=== PATIENT | male | born 2000 | race Hispanic/Latino ===

== ENCOUNTER 2021-08-07 15:47 | Emergency (ER) | payer SELFPAY ==
[2021-08-07] MEDS ORDERED: SILVER SULFADIAZINE 1% 25 GM TOP ONE (16:50)
[2021-08-07] MEDS ORDERED: TETANUS & DIPHTHERIA TOX,ADULT 0.5 ML VIAL ONE (16:50)
[2021-08-07] MEDS ORDERED: HYDROCODONE/APAP 5/325 MG TAB ONE (16:50)
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
[2021-08-07 17:48] VITALS: BP 121/81; TEMP 97.1; O2SAT 95
== END 2021-08-07 17:26 | disposition home or self-care (01) ==
LOC: ER 15:47
DX: T23.102A Burn of first degree of left hand, unspecified site, initial encounter (principal); X19.XXXA Contact with other heat and hot substances, initial encounter; Z23 Encounter for immunization
CPT/HCPCS: 90471; 90714; 99284

== ENCOUNTER 2022-05-22 07:44 | Emergency (ER) | payer OTHER ==
--- NOTE | 2022-05-22 08:05 | EDPHYS ---
Physician Documentation [facility] Name: Jeremiah Joy Age: 22 yrs Sex: Male : 2000 Arrival Date: 05/22/2022 Time: 07:46 Bed 6 Private MD: ED Physician Donald Abdi HPI: 05/22 08:32 This 22 yrs old Male presents to ER via Ambulatory with complaints of Neck kb Pain, <24hrs Old, Head Injury Without LOC-Adult, Nausea, Dizziness. 08:32 The patient or guardian reports pain. The complaints affect the forehead. Context of kb injury: The problem was sustained at work, resulted from hitting head with heel of palms. Onset: The symptoms/episode began/occurred yesterday. Associated signs and symptoms: Loss of consciousness: This patient did not experience any loss of consciousness. Pertinent positives: headache, nausea. Severity of symptoms: At their worst the symptoms were mild, in the emergency department the symptoms have resolved. The patient has not experienced similar symptoms in the past. The patient has not recently seen a physician. Pt reports he got frustrated at work around 1400 yesterday and hit his head with the heels of his palms. States he has had intermittent headache, dizziness and nausea since then. Denies loc. Reports he did some reading on [employer] and got worried about it so he wanted to get checked out. . Historical: - Allergies: 08:03 No Known Allergies; kc6 - Home Meds: 08:03 None [Active]; kc6 - PMHx: 08:03 None; kc6 - PSHx: 08:03 None; kc6 - Immunization history:: Client reports receiving the 2nd dose of the Covid vaccine. - Social history:: Smoking status: Patient denies any tobacco usage or history of. ROS: 08:32 Constitutional: Negative for fever, chills, and weight loss. kb 08:32 Abdomen/GI: Positive for nausea. 08:32 Neuro: Positive for dizziness, headache. 08:32 All other systems are negative. Exam: 08:32 Constitutional: This is a well developed, well nourished patient who is awake, alert, kb and in no acute distress. Head/Face: Normocephalic, atraumatic. ENT: Moist Mucous membranes Cardiovascular: Regular rate and rhythm with a normal S1 and S2. No gallops, murmurs, or rubs. No pulse deficits. Respiratory: Respirations even and unlabored. No increased work of breathing. Talking in full sentences Abdomen/GI: Soft, non-tender. No distention Skin: Warm, dry with normal turgor. Normal color. MS/ Extremity: Pulses equal, no cyanosis. Neurovascular intact. Full, normal range of motion. Neuro: Awake and alert, GCS 15, oriented to person, place, time, and situation. Moves all extremities. Normal gait. Psych: Awake, alert, with orientation to person, place and time. Behavior, mood, and affect are within normal limits. Vital Signs: 08:01 BP 132 / 80; Pulse 83; Resp 18 S; Temp 97.7(TE); Pulse Ox 96% on R/A; Weight 90.72 kg kc6 (R); Height 5 ft. 7 in. (170.18 cm) (R); Pain 1/10; 08:01 Body Mass Index 31.32 (90.72 kg, 170.18 cm) kc6 Harrold Coma Score: 08:30 Eye Response: spontaneous(4). Verbal Response: oriented(5). Motor Response: obeys kb commands(6). Total: 15. 08:32 Eye Response: spontaneous(4). Verbal Response: oriented(5). Motor Response: obeys kb commands(6). Total: 15. MDM: 07:56 Patient medically screened. kb 08:30 Differential diagnosis: Intracranial bleed- Concussion without LOC. headache. Data kb reviewed: vital signs, nurses notes. Test considered but Not performed: Other Details CT scan considered, but incident occurred at 1400 yesterday with no LOC and normal neuro exam. . Counseling: I had a detailed discussion with the patient and/or guardian regarding: the historical points, exam findings, and any diagnostic results supporting the discharge/admit diagnosis, the need for outpatient follow up, a family practitioner, to return to the emergency department if symptoms worsen or persist or if there are any questions or concerns that arise at home. Administered Medications: 08:15 Drug: Ondansetron 4 mg Route: PO; 6 08:30 Follow up: Response: No adverse reaction; Nausea is decreased [facility] 08:15 Drug: Tylenol 1000 mg Route: PO; kc6 08:30 Follow up: Response: No adverse reaction; Pain is decreased kc6 Disposition Summary: 05/22/22 08:04 Discharge Ordered Location: Home kb Condition: Stable kb Diagnosis - Headache kb Followup: kb - With: Emergency Department - When: As needed - Reason: Worsening of condition Followup: kb - With: Private Physician - When: 2 - 3 days - Reason: Recheck today's complaints, Continuance of care, Re-evaluation by your physician Discharge Instructions: - Discharge Summary Sheet kb - Head Injury, Adult, [id number] kb Forms: - Medication Reconciliation Form kb - Thank You Letter kb - Antibiotic Education kb - Prescription Opioid Use kb Signatures: Peri Ceja, APPLE PICKER-C PHUONG-Areli Howard, RN RN kc6
--- NOTE | 2022-05-22 08:05 | ER ---
Nurse's Notes [facility] Name: Jeremiah Joy Age: 22 yrs Sex: Male : 2000 Arrival Date: 05/22/2022 Time: 07:46 Bed 6 Private MD: Diagnosis: Headache Presentation: 05/22 08:01 Chief complaint: Patient states: he was at work yesterday when he got frustrated and kc6 hit his head with the balls of this palms. denies LOC. Coronavirus screen: Vaccine status: Patient reports receiving the 2nd dose of the covid vaccine. At this time, the client does not indicate any symptoms associated with coronavirus-19. Ebola Screen: No symptoms or risks identified at this time. Initial Sepsis Screen: Does the patient meet any 2 criteria? No. Patient's initial sepsis screen is negative. Does the patient have a suspected source of infection? No. Patient's initial sepsis screen is negative. Risk Assessment: Do you want to hurt yourself or someone else? Patient reports no desire to harm self or others. Onset of symptoms was May 21, 2022. 08:01 Method Of Arrival: Ambulatory 6 08:01 Acuity: CARMEN 3 kc6 Triage Assessment: 08:03 General: Appears in no apparent distress. comfortable, Behavior is calm, cooperative, kc6 appropriate for age. Pain: Denies pain. EENT: No signs and/or symptoms were reported regarding the EENT system. 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 Gait is steady, Speech is normal, Facial symmetry appears normal, Pupils are PERRLA, Intact. Cardiovascular: Heart tones S1 S2 present Capillary refill < 3 seconds. Respiratory: Airway is patent Trachea midline Respiratory effort is even, unlabored, Respiratory pattern is regular, symmetrical, Breath sounds are clear bilaterally. GI: No signs and/or symptoms were reported involving the gastrointestinal system. : No signs and/or symptoms were reported regarding the genitourinary system. Derm: No signs and/or symptoms reported regarding the dermatologic system. Skin is intact, Skin is pink, warm \T\ dry. Musculoskeletal: No signs and/or symptoms reported regarding the musculoskeletal system. Circulation, motion, and sensation intact. Capillary refill < 3 seconds, Range of motion: intact in all extremities. Historical: - Allergies: 08:03 No Known Allergies; kc6 - Home Meds: 08:03 None [Active]; kc6 - PMHx: 08:03 None; kc6 - PSHx: 08:03 None; kc6 - Immunization history:: Client reports receiving the 2nd dose of the Covid vaccine. - Social history:: Smoking status: Patient denies any tobacco usage or history of. Screenin:05 [facility] ED Fall Risk Assessment (Adult) History of falling in the last 3 months, kc6 including since admission No falls in past 3 months (0 pts) Confusion or Disorientation No (0 pts) Intoxicated or Sedated No (0 pts) Impaired Gait No (0 pts) Mobility Assist Device Used No (0 pt) Altered Elimination No (0 pt) Score/Fall Risk Level 0 - 2 = Low Risk Oriented to surroundings, Maintained a safe environment, Educated pt \T\ family on fall prevention, incl call for assistance when getting out of bed, Assessed \T\ reinforced patient's understanding of fall precautions, Hourly rounding (assess needs \T\ fall precautionary measures) done. Abuse screen: Denies threats or abuse. Denies injuries from another. Nutritional screening: No deficits noted. Tuberculosis screening: No symptoms or risk factors identified. Assessment: 08:04 Reassessment: please see triage assessment. [facility] Vital Signs: 08:01 BP 132 / 80; Pulse 83; Resp 18 S; Temp 97.7(TE); Pulse Ox 96% on R/A; Weight 90.72 kg kc (R); Height 5 ft. 7 in. (170.18 cm) (R); Pain 1/10; 08:01 Body Mass Index 31.32 (90.72 kg, 170.18 cm) [facility] [place] Coma Score: 08:30 Eye Response: spontaneous(4). Verbal Response: oriented(5). Motor Response: obeys kb commands(6). Total: 15. 08:32 Eye Response: spontaneous(4). Verbal Response: oriented(5). Motor Response: obeys kb commands(6). Total: 15. ED Course: 07:46 Patient arrived in ED. as 07:53 Peri Ceja FNP-C is [facility]. kb 07:53 Donald Abdi MD is Attending Physician. kb 08:00 Areli Rose, RN is Primary Nurse. kc6 08:03 Triage completed. kc6 08:05 Arm band placed on. kc6 08:05 Patient has correct armband on for positive identification. Bed in low position. Call kc6 light in reach. Side rails up X 1. 08:30 No provider procedures requiring assistance completed. Patient did not have IV access kc6 during this emergency room visit. Administered Medications: 08:15 Drug: Ondansetron 4 mg Route: PO; kc6 08:30 Follow up: Response: No adverse reaction; Nausea is decreased kc6 08:15 Drug: Tylenol 1000 mg Route: PO; kc6 08:30 Follow up: Response: No adverse reaction; Pain is decreased kc6 Medication: 08:30 VIS not applicable for this client. kc6 Outcome: 08:04 Discharge ordered by . kb 08:30 Discharged to home ambulatory. kc6 08:30 Condition: stable 08:30 Discharge instructions given to patient, Instructed on discharge instructions, Demonstrated understanding of instructions. 08:31 Patient left the ED. kc6 Signatures: Peri Ceja FNP-C INSTRUMENT TECHNICIAN-Ckb Reanna Milton as Areli Rose, RN RN kc6
[2022-05-22] MEDS ORDERED: ACETAMINOPHEN 500 MG TAB ONE (08:10)
[2022-05-22] MEDS ORDERED: ONDANSETRON 4 MG (ODT) TAB ONE (08:11)
[2022-05-22 08:35] VITALS: BP 132/80; TEMP 97.7; O2SAT 96
== END 2022-05-22 08:31 | disposition home or self-care (01) ==
LOC: ER 07:44
DX: R51.9 Headache, unspecified (principal)
CPT/HCPCS: 99283; Q0162